=== PATIENT | male | born 1945 | race Caucasian/White ===

== ENCOUNTER 2016-04-17 14:49 | Emergency (ER) | payer MEDICARE, OTHER ==
[~2016-04-17] VITALS: Ht 188 cm; Wt 138.6 kg
[~2016-04-17 14:49] MED LIST: ADV250INH INH; AMLO2.5T2 PO; CHOL400T41 PO; Calcium PO; Fluticasone INH; GLUC-123 PO; LACT1CAP65 PO; LISI2.5T66 PO; LORA-630 PO; ProAirHFA INH; TAM4 PO; VITA0.4T7 PO; VITA100T6 PO; [UNRECOGNIZED DRUG - CODE] PO; [UNRECOGNIZED DRUG - CODE] PO
[2016-04-17 15:00] VITALS: BP 127/57; PULSE 89; O2SAT 93
--- NOTE | 2016-04-17 15:18 | ED.REPORT ---
HPI-General Illness Date of Service Apr 17, 2016 ED Provider: Jan Toure MD 71 year old male presents to the ER via EMS accompanied by his complaining of left shoulder pain status post mechanical ground level fall just prior to arrival in the department. He also reports left hip pain secondary to the fall. Patient denies head trauma, LOC, and any other injuries. Nursing Notes Stated Complaint: GROUND LEVEL FALL Chief Complaint: Extremity Trauma Nursing Notes Reviewed: Yes Allergies: Coded Allergies: morphine (Verified Adverse Reaction, Mild, NAUSEA, 09/03/12) Scheduled ([Calcium]) 1 TAB PO DAILY Albuterol-Expunged Drug, Do Not Renew! (ProAir HFA-Expunged Drug, Do Not Renew! ) 200 Puff/8.5 Gm Hfa.aer.ad 1-2 PUFFS INH Q 4HRS PRN AmLODIPine-Expunged Drug, Do Not Renew! (AmLODIPine-Expunged Drug, Do Not Renew! ) 2.5 Mg Tablet 2.5 MG PO DAILY Cholecalciferol (Vitamin D3) (Vitamin D3) 2,000 Unit Tablet 2,000 UNIT PO DAILY Flutic/Salmet-Expunged Drug, Do Not Renew! (Advair 250/50-Expunged Drug, Do Not Renew!) 60 Puff Disk 1 PUFF INH BID Gluc/Carlos-Msm#2/C/D3/Glenn/Born (Dvdxjtfiod-Nnxtfurqhdo-Fzm Tab) 1 Each Tablet 1- 2 EACH PO DAILY LORAT/N-KXFTJ-Vcynbkyw Drug! (ALLERGY & CONGESTION-Expunged Drug!) 1 Each Tab.er.12h 1 EACH PO DAILY Lactobacillus Acidophilus (Probiotic) 1 Each Capsule 1 EACH PO DAILY Lisinopril-Expunged Drug, Do Not Renew! (Lisinopril-Expunged Drug, Do Not Renew! ) 2.5 Mg Tablet 2.5 MG PO DAILY Metformin (Glucophage) 1,000 Mg Tablet 1,000 MG PO BID Tamsulosin-Expunged Drug, Do Not Renew! (Flomax-Expunged Drug, Do Not Renew!) 0.4 Mg Capsule 0.4 MG PO DAILY VITAMIN E ACID-Expunged Drug, Do Not Renew! (VITAMIN E-Expunged Drug, Do Not Renew!) 100 Unit Tablet 400 MG PO DAILY Scheduled PRN Hydrocodone-Acetaminophen 5-325 mg (Hydrocodone-Acetaminophen 5-325 mg) 1 Each Tablet 1 TABLET PO Q4H PRN PRN For Pain General Time Seen by MD: 15:15 Chief Complaint Other (Left Shoulder Pain) Hx Obtained From: Patient Arrived By: Ambulance Sudden in Onset?: Yes Onset Occurred: 1 - 4 hours ago (1) Symptom Duration: Since onset Caused by: Accidental, Fall on ground Context: Occurred at: Home injury Location: : Shoulder left Quality: Painful Severity: Current: Moderate Severity: Maximum: Moderate Associated with: Denies: Headache, Loss of consciousness Additional Notes: Left hip pain Denies head trauma Pertinent Negative: Pt denies other symptoms Past Medical History Past Medical History Reports: Asthma, Cancer (Prostate, bladder), Diabetes mellitus, Hypertension Past Surgical History Right knee scope Multiple bowel surgeries Reports: Hip replacement (Right) Social History Alcohol Use: "Social" (Rarely) Other Social History: Good social support, Review of Systems Full Review of Systems GI: Denies: Nausea, Vomiting Musculoskeletal: Reports: Joint pain (Left shoulder, Left hip), Denies: Back pain, Extremity pain, Lumbar pain, Neck pain, Thoracic pain Neurologic: Denies: Headache, Numbness, Syncope Complete sys rev & neg: except as marked. Physical Exam Vital Signs Vital Signs Date Time Temp Pulse Resp B/P Pulse Ox O2 Delivery O2 Flow Rate FiO2 04/17/16 15:00 36.8 89 127/57 93 Room Air Initial VS: Reviewed Head / Eyes: Atraumatic, Normocephalic Neck: Supple, Non-tender, Full range of motion Skin: Warm, Dry, No cyanosis Neurologic: Alert, Oriented, Nonfocal Psychiatric: Mood/affect normal, Behavior normal, Normal thought content General/Constitutional: Awake, Alert, Well developed, Well nourished Appearance / Presentation: Positive: Obese Upper Extremities Upper Extremity / MS: Neurologic intact, Vascular intact Upper Extremities Normals: Shoulder R exam normal Left Shoulder: Positive: Deformity present, Tenderness present... (Moderate) Lower Extremity / Pelvis / MS: Full range of motion, Neurologic intact, Vascular intact Left Hip: Positive: Tenderness present... Interpretation & Diagnostics X-Ray Interpretation Xray Interpretation: IMPRESSION: 1. Anterior dislocation of the left glenohumeral joint. Dictated by: Xu Méndez M.D. on 04/17/2016 at 16:19 Approved by: Xu Méndez M.D. on 04/17/2016 at 16:20 X-Ray Ordered: Shoulder left Interpretation / Wet Read by: Interpret - Radiologist Procedures Proced Mod Sedation/Analgesia Time: 16:30 Procedure Performed by: ED physician Sedation Time: 10 - 15 min Consent / Setup: Informed consent provided, Consent from patient, Time-out performed, Hand hygiene observed, Stand sterile technique, Patient sitting up Indication: Shoulder reduction Preparation: classroom monitor applied, Pulse oximeter applied, Constant attendance, IV access established, Eval last meal time, Supplemental oxygen, Procedure explained, Suction available, End tidal CO2 mon applied VS Prior to Procedure: All vital signs normal Mallampati: Class & Anatomy: 1 tonsils/uvula/s palate Airway Exam: Normal facial anatomy, Normal neck anatomy, Normal anatomy CVS/Resp Exam: Normal breath sounds, Normal heart sounds Neuro Exam: Alert Sedation: Sedation: Propofol (200mg) ASA Classification: 1 normal healthy patient Response During Procedure: Handled secretions adeq, Maintained airway well, Oxygenation stable, Sedation appropriate, Vital signs stable Complications During/After: None Reversal: None required Mental Status After Procedure: Alert Post-Procedure: Alert prior to discharge, Ambulatory with assist Attestation: I performed procedure, I performed sedation Reduction Dislocated Shoulder Time: 16:30 Procedure Performed by: ED physician Consent / Setup: Informed consent provided, Consent from patient, Time-out performed, Oxygen administered, Pulse oximeter applied, classroom monitor applied , Hand hygiene observed, Stand sterile technique Procedural Sedation/Analgesia: Sedation: Propofol (200mg) Which Shoulder and Technique: Left shoulder Neurovascular: Intact pre-procedure, Intact post-procedure Post-Procedure / Complications: Reduced per examination, Procedure successful, X-ray disloc reduced, Shoulder immobilized, Condition improved, Tolerated procedure well, Patient stable Splint Application - Fx Mgt Time: 16:37 Procedure Performed by: ED physician, Inner Tube Cutter Precise Anatomic Location: Left shoulder Type of Immobilization: Sling Post-Procedure / Complications: Cap refill normal, Post splint vascular nl, Post splint neuro nl, Condition improved, Tolerated procedure well, Patient stable Splint Post-Application Eval Extremity Condition: Cap refill < 2 sec, Distal sensation intact, Distal motor Intact, No compartment syndrome Re-Eval/Medical Decision Med Decision/Clinical Course The patient is a 71-year-old male who presents to the emergency department with left shoulder pain/deformity after sustaining a ground-level fall. Here in the emergency department the patient is afebrile with stable vital signs and examination as above notable for deformity of the left shoulder without any neurovascular deficits. Patient has good sensation over the deltoid region, good radial pulses and good cap refill to the fingertips. Plain films demonstrate anterior dislocation of the left shoulder without any fracture. Informed consent was obtained and I proceeded with procedural sedation using propofol. The patient was maintained on continuous cardiac monitoring, pulse oximetry and end-tidal CO2. Shoulder was reduced by traction and postreduction films demonstrated good alignment of the shoulder. The procedure was tolerated well and the patient maintained good oxygen saturation without any significant apnea or changes in vital signs. He reported complete resolution of his pain with reduction of his shoulder. He was placed in a splint and provided with a prescription for [place] for pain. He will follow up with orthopedic surgery in the next week. Follow-up and return precautions were reviewed in detail the patient was discharged in good condition. Source of Hx: Old records Time of Eval: 16:30 Re-Evaluation/Progress Note: Procedural sedation and shoulder reduction. Discussed radiololgy results and plan to discharge with . She is amenable to the plan. Return precautions given. All other questions addressed. Time of Eval: 17:01 Counseled Regarding: Diagnosis, Need for follow-up, When/why to return to ED Discharge & Departure Primary Impression: Shoulder dislocation Encounter type: initial encounter Laterality: left Qualified Code: S43.005A - Unspecified dislocation of left shoulder joint, initial encounter Additional Impressions: Left shoulder pain Chronicity: acute Qualified Code: M25.512 - Pain in left shoulder Fall from ground level Disposition: Home Discharge Condition All VS Reviewed: Yes Condition: Stable Patient Instructions: How to Use a Sling (GEN), Shoulder Dislocation (ED) Additional Instructions: Thank you for seeking care at emergency room for your shoulder dislocation. Our primary goal today in the ED was to evaluate you for any life-threatening conditions. Your evaluation was reassuring. You will be discharged with a prescription for pain medication. Please take as directed. Do not consume alcohol or drive while taking narcotic pain medication. You should follow-up with the orthopedic doctor this week at the number provided. You should return to the ED immediately if you develop worsening pain, numbness/ tingling, weakness, or any other concerning signs or symptoms. Thank you for letting us partake in your care today. Referrals: Jose Paige DO (PCP) Matt Fitch Attestation Portions of this note were transcribed by Art Cisneros. I, Dr. Toure, personally performed the history, physical exam and medical decision-making; I reviewed and confirmed the accuracy of the information in the transcribed note. Signed by: Siomara Conn, 04/17/2016 and 16:43 copies to: Jose Paige DO; Matt Fitch Beck O MD Apr 17, 2016 15:18 ART CISNEROS Apr 17, 2016 16:03
[2016-04-17] MEDS ORDERED: CHOL200025 PO (15:23)
[2016-04-17] MEDS ORDERED: METF1000 PO (15:23)
[2016-04-17] MEDS ORDERED: Ondansetron 2 mg/mL 2 mL Inj IVPUSH ONE (15:35)
[2016-04-17] MEDS ORDERED: 0.9% Sodium Chloride 1,000 ML IV ONE (15:35)
[2016-04-17] MEDS ORDERED: HYDROmorphone 1 mg/mL Inj IVPUSH ONE (15:35)
[2016-04-17] MEDS ORDERED: Propofol 10 mg/mL 20 mL Inj IVPUSH ONE (16:00)
--- NOTE | 2016-04-17 16:21 | DRSVH ---
PROCEDURE: X-RAY LEFT SHOULDER, MINIMUM TWO VIEWS ([id number]) INDICATIONS: possible dislocation TECHNIQUE: 2 views of the shoulder were acquired. COMPARISON: None. FINDINGS: Bones: There is anterior dislocation of the left glenohumeral joint. No definite fracture identifie d. No suspicious bony lesions. Visualized ribs appear intact. Soft tissues: No suspicious soft tissue calcifications. IMPRESSION: 1. Anterior dislocation of the left glenohumeral joint. Dictated by: Xu Méndez M.D. on 04/17/2016 at 16:19 Approved by: Xu Méndez M.D. on 04/17/2016 at 16:20
[2016-04-17] MEDS ORDERED: HYDR-4003 PO (16:56)
--- NOTE | 2016-04-17 17:03 | DRSVH ---
PROCEDURE: X-RAY LEFT SHOULDER, MINIMUM TWO VIEWS ([id number]) INDICATIONS: post reduction TECHNIQUE: 2 views of the shoulder were acquired. COMPARISON: [facility], CR, XR SHOULDER MIN 2VW LT, 04/17/2016, 15:46. FINDINGS: Bones: There is interval reduction of the glenohumeral joint. No definite fracture identified. No suspicious bony lesions. Visualized ribs appear intact. Soft tissues: No suspicious soft tissue calcifications. IMPRESSION: 1. Reduction of the glenohumeral joint without definite fracture identified. Dictated by: Xu Méndez M.D. on 04/17/2016 at 17:01 Approved by: Xu Méndez M.D. on 04/17/2016 at 17:02
--- NOTE | 2016-04-17 17:06 | DRSVH ---
PROCEDURE: X-RAY PELVIS, ONE OR TWO VIEWS ([id number]) INDICATIONS: trauma TECHNIQUE: Single view of the pelvis acquired. COMPARISON: None. FINDINGS: Bones: Single view of the pelvis demonstrates no definite fracture or dislocation. Evaluation is li mited due to incomplete inclusion of the iliac wings bilaterally. There is a right total hip prosthe sis demonstrated with the femoral component not fully visualized distally. Soft tissues: Visualized bowel gas pattern is normal. No suspicious soft tissue calcifications. IMPRESSION: 1. Limited study demonstrates no definite fracture or dislocation. Dictated by: Xu Méndez M.D. on 04/17/2016 at 17:02 Approved by: Xu Méndez M.D. on 04/17/2016 at 17:05
[2016-04-17 18:55] VITALS: BP 130/49; PULSE 74; RESP 11; O2SAT 98
[2016-08-18] MEDS ORDERED: LISI-567 PO (08:29)
[2016-08-18] MEDS ORDERED: MELO-253 PO (08:29)
[2016-08-18] MEDS ORDERED: FLUT9.9S NS (08:29)
[2016-08-18] MEDS ORDERED: FEXO180T85 PO (08:29)
[2016-08-18] MEDS ORDERED: ADV250INH IH (08:29)
[2016-08-18] MEDS ORDERED: METF1000 PO (08:29)
[2016-08-18] MEDS ORDERED: TAMS0.4C98 PO (08:29)
[2016-08-18] MEDS ORDERED: ALBU8.5H2 INHALATION (08:29)
[2016-08-18] MEDS ORDERED: GABA-502 PO (08:29)
[2016-08-18] MEDS ORDERED: ATOR20TA PO (08:29)
[2016-08-18] MEDS ORDERED: AMLO5TAB2 PO (08:29)
== END 2016-04-17 17:10 | disposition home or self-care (01) ==
LOC: EDUNIT# 14:49 → EDBD 14:49 → SED 14:49
DX: S43.015A Anterior dislocation of left humerus, initial encounter (principal); W18.39XA Other fall on same level, initial encounter; Y92.009 Unspecified place in unspecified non-institutional (private) residence as the place of occurrence of the external cause; Y93.89 Activity, other specified; Y99.8 Other external cause status; M25.552 Pain in left hip; J45.909 Unspecified asthma, uncomplicated; I10 Essential (primary) hypertension; E11.9 Type 2 diabetes mellitus without complications; Z96.641 Presence of right artificial hip joint; Z79.84 Long term (current) use of oral hypoglycemic drugs; Z88.5 Allergy status to narcotic agent
CPT/HCPCS: 23650; 72170; 73030; 94799; 96361; 96374; 96375; 99152; 99285; G0463; J1170; J2405; J7030

== ENCOUNTER 2016-08-23 05:45 | Inpatient (IN) | payer MEDICARE, OTHER ==
[2016-08-23] VITALS (17 sets, daily range): BP systolic 127–158; BP diastolic 52–89; PULSE 64–85; RESP 12–20; O2SAT 90–99
[~2016-08-23] VITALS: Ht 188 cm; Wt 134.0 kg
[~2016-08-23 05:45] MED LIST changes: +ADV250INH IH; -ADV250INH INH; +ALBU8.5H2 INHALATION; -AMLO2.5T2 PO; +AMLO5TAB2 PO; +ATOR20TA PO; -CHOL400T41 PO; -Calcium PO; +FEXO180T85 PO; +FLUT9.9S NS; -Fluticasone INH; +GABA-502 PO; -GLUC-123 PO; -LACT1CAP65 PO; +LISI-567 PO; -LISI2.5T66 PO; -LORA-630 PO; +Lactated Ringer's 1,000 ML IV SCH; +MELO-253 PO; +METF1000 PO; -ProAirHFA INH; -TAM4 PO; +TAMS0.4C98 PO; -VITA0.4T7 PO; -VITA100T6 PO; -[UNRECOGNIZED DRUG - CODE] PO; -[UNRECOGNIZED DRUG - CODE] PO
[2016-08-23] MEDS ORDERED: Acetaminophen IV 1,000 MG in IV Premix 1 EACH IV ONE (06:00)
[2016-08-23] MEDS ORDERED: Bupivacaine Liposome 1.3% 20 mL Inj INFILTRATE ONE (06:00)
[2016-08-23] MEDS ORDERED: CeFAZolin Inj 3 GM in IV Premix IV ONE (06:00)
[2016-08-23] MEDS ORDERED: Hip/Knee Infiltration Cocktail IM ONE ×7 (06:00)
[2016-08-23] MEDS ORDERED: Gentamicin 40 mg/mL 2 mL Inj IRRIGATION ONE (06:00)
[2016-08-23] MEDS ORDERED: Lactated Ringer's 1,000 ML IV ONE ×2 (06:34→09:21)
[2016-08-23] MEDS ORDERED: Lactated Ringer's 1,000 ML IV SCH (07:09)
[2016-08-23] MEDS ORDERED: Lactated Ringer's 500 ML IV PRN (07:09)
[2016-08-23] MEDS ORDERED: EPHEDrine Sulfate 50 mg/mL Inj IVPUSH PRN (07:10)
[2016-08-23] MEDS ORDERED: Phenylephrine 10,000 mCg/mL Inj IVPUSH PRN (07:10)
[2016-08-23] MEDS ORDERED: fentaNYL-PF 50 mCg/mL 2 mL Inj IVPUSH PRN (07:10)
[2016-08-23] MEDS ORDERED: Atropine 0.4 mg/mL Inj IVPUSH PRN (07:10)
[2016-08-23] MEDS ORDERED: MetoCLOpramide 5 mg/mL 2 mL Inj IVPUSH PRN ×2 (07:10→09:55)
[2016-08-23] MEDS ORDERED: Labetalol 5 mg/mL 4 mL Inj IV PRN (07:10)
[2016-08-23] MEDS ORDERED: Ondansetron 2 mg/mL 2 mL Inj IVPUSH PRN ×2 (07:10→09:55)
[2016-08-23] MEDS ORDERED: HYDROmorphone 1 mg/mL Inj IVPUSH PRN (07:10)
[2016-08-23] MEDS ORDERED: hydrALAZINE 20 mg/mL Inj IVPUSH PRN (07:10)
[2016-08-23] MEDS ORDERED: Dexamethasone 4 mg/mL Inj IVPUSH PRN (07:10)
[2016-08-23] MEDS ORDERED: Albuterol 2.5 mg/3 mL Inhalation Solution NEB PRN (07:10)
[2016-08-23] MEDS ORDERED: Tranexamic Acid 100 mg/mL 10 mL Inj ONE (07:15)
[2016-08-23] MEDS ORDERED: 0.9% Sodium Chloride 200 ML ONE (07:15)
--- NOTE | 2016-08-23 07:26 | PCM.ORTHOP ---
Orthopedic Operative Report Date of Service: Aug 23, 2016 Pre Operative Diagnosis Left shoulder massive rotator cuff tear, glenohumeral joint arthritis, biceps tendinitis Post Operative Diagnosis Same Procedure Left reverse total shoulder arthroplasty, open biceps tenodesis Surgeon Surgeon: Jorge Gore MD Assistants: Alvarado Mcfarlane Indication for Procedure Left shoulder pseudoparalysis, arthritis, massive rotator cuff tear Findings Per dictation Details of Procedure Implant:[employer] Reverse fracture system: 9 CaP coated humeral stem, 39 neutral glenoid baseplate, 39+6 humeral insert mm head, 39+4 glenosphere, 6.5X20 mmcentral non-locking screw size peripheral locking screw 36mm, peripheral locking screw 36mm Patient Status: Patient was extubated and taken to recovery room in stable condition. Indications: Javed Nelson is a 71-year-old male right hand dominant with left shoulder pain with pseudoparalysis and glenohumeral arthritis. The patient was offered conservative treatments versus surgical intervention given the severity of the injury and the patient opted for surgery. A clear explanation was given to the patient regarding the condition present, and the available conservative and surgical options. It was emphasized that the risks and benefits of surgery include but are not limited to infection, wound healing problems, damage to adjacent structures such as nerves, blood vessels and tendons, terminal supervisor disability and pain, arthritis, hypersensitivity, deep vein thrombosis, pulmonary embolism, broken hardware, failure of surgery, need for further procedures at time of surgery or later, cast related problems, loss of limb or life. The patient was given an explanation and the patient voiced understanding of what to expect after the procedure or surgery, the limitations in activities of daily living, the likely duration for post operative recovery and the instructions that are to be followed. At the end the patient was invited to seek clarification or ask further questions but there were none. The patient voiced understanding of the entire consultation. Description of Procedure: Patient was taken to operating room and transferred to operating table in supine position. Time out was performed with both anesthesia and orthopaedics faculty present to confirm details of case to be performed. After time out performed, patient placed under general anesthesia and endotracheal tube secured into place. Once endotracheal tube secured, the patient was placed into the modified beach-chair position at about 40 degrees of flexion. Patient position was again checked to ensure all bony prominences adequately padded. The left arm was prepped and draped in the usual sterile fashion to the level of the neck. A standard deltopectoral incision was made beginning immediately above the coracoid process and extending distally and laterally. The deltoid muscle was split through the interval being carefully not to release any deltoid along the clavicle or humerus. The proximal one-third of the pectoralis major muscle was incised off the humerus for better exposure. The supraspinatus and infraspinatus muscles were intact and still attached to the fractured greater tuberosity. The subscapularis was intact and also still attached to the fractured lesser tuberosity. It was incised through the tendinous portion just medial to the lesser tuberosity and tagged with 2-0 Fiberwire. The arm was externally rotated to expose the humeral head while the anterior humeral circumflex vessels ("3 sisters") were identified, ligated and then cut protecting the axillary nerve throughout inferior and medial to the vessels. The long head of the biceps was identified along the bicipital groove, incised at its origin and tagged for later tenodesis to the pectoralis major A army helicopter pilot hole was then made with a 4 mm drill through the humeral head along the axis of the humeral shaft just lateral to the head's articular surface and just posterior to the bicipital groove. The 6 mm trochar pointed reamer was then inserted with continued circumferential reaming in 1 mm increments until light cortical contact was achieved with the entry reamer. The intramedullary resection guide was assembled and the version control alberto was placed to allow for 30 degrees retroversion. The neck cut was verified with a bat wing. Two threaded Steinmann pins were placed in the resection guide to secure the block to bone and the reamer and guide boom were removed prior to resecting the humeral head with the oscillating saw. We started broaching sequentially and ended with the 9 mm broach which solidly fit in the canal and fully seated on the humerus. The broach cover was then used to protect the humerus while attention was turned to the glenoid. Any remaining labrum was removed from the glenoid along with surrounding osteophytes. The glenoid sizer was centered on the glenoid and a 3.2 mm Steinmann pin was inserted with a 10 degree inferior tilt with solid bone purchase. The glenoid was then reamed with the cannulated base plate reamer over the top of the Steinmann pin until a small bone shelf was evident circumferentially. The cannulated trial glenoid baseplate was placed and fully seated. The glenoid baseplate implant was impacted and fully seated. The 6.5 mm central screw was then inserted following removal of the Steinmann with good compression. The surrounding peripheral screws were then drilled with a 2.7 mm drill through the threaded locking guides and then placed. The glenosphere trial was placed and tested with a good fit. The 39 mm glenosphere implant was then tamped in place with appropriate offset. The standard humeral tray/bearing were placed and a trial reduction was performed. The patient achieved 80 degrees of external/internal rotation, 110 degrees of abduction, 45 degrees extension and 120 degrees of forward flexion with complete stability. The trail components were removed and the wound was copiously irrigated with 3 liters of normal saline. The stem was inserted followed by impaction of the humeral tray/ bearing. The implant was reduced and once again range of motion was found to be 80 degrees of external/internal rotation, 110 degrees of abduction, 45 degrees extension and 120 degrees of forward flexion with complete stability. The wound was again irrigated. The subscapularis was repaired with drill holes in the humerus prior to implantation of the stem with #2 Fiberwire through previously made bone tunnels. The long head of biceps was tenodesed to the pectoralis major. The deltoid interval was closed with 0 vicryl followed by 2-0 vicryl subcutaneous closure and then stratafix stitches for the skin. Transexamic acid was administered and a local anesthetic cocktail into the skin. Sterile dressings were applied along with a shoulder immobilizer and abduction pillow. The patient was then awoken from anesthesia and extubated, his neurovascular status was intact when checked in PACU. Pt tolerated procedure well and there was no complications. Nonweightbearing to affected upper extremity. Please leave sling on at all times. You may remove sling 3 times a day to move the elbow wrist and fingers. Do not move your shoulder. PROM only, IR to body, ER to 0 degrees, FF to 90 degrees, ABD to 0 degrees. Keep your arm at neutral, NO external rotation of the arm, no resisted IR of the arm. Please keep the affected extremity elevated when possible. You may use ice and/or heat as needed for comfort. Follow-up in 2 weeks with me with 2-view xrays and for suture removal and Steri -Strip application. Follow-up with me at 6 weeks. You will have pain medications , medication for constipation and aspirin 81 qdaily X 2 weeks. Grafts, Implants: Implants-See Implant Record Complications There were no periprocedural complications identified. Condition Stable Anesthetic Administered: GA Catheters: None Output, Estimated Blood Loss: 100 Blood Admin during surgery: No Surgical Cast or Splint: Shoulder Immobilizer Surgical Specimen Removed: No Specimen sent to Pathology: No copies to: Jorge Gore MD, Christopher L MD Aug 23, 2016 07:26
[2016-08-23] MEDS ORDERED: Hip/Knee Infiltration Cocktail ARTICULAR ONE ×6 (07:30)
[2016-08-23] MEDS ORDERED: Bacitracin 50,000 unit Inj ONE (07:33)
[2016-08-23] MEDS ORDERED: Bacitracin 50,000 unit Inj IRRIGATION ONE (08:35)
--- NOTE | 2016-08-23 08:39 | PCM.HPANE ---
Patient Data Date of Service: Aug 23, 2016 Surgeon Admitting Provider: Attending Provider:Jorge Gore MD Primary Care Physician:Jose Paige DO Other Provider:Daniele Land Anesthesia Reason for Visit Left Shoulder Rotator Cuff Tear Ht/WT & BMI Height (Feet): 6 Height (Inches): 1.00 Weight (Kilograms): 134.717 Body Mass Index 39.00 Allergies Coded Allergies: morphine (Verified Adverse Reaction, Severe, NAUSEA, 08/18/16) Past Anesthesia History Anesthesia History: Denies:: Anesthesia Reactions, Malignant Hyperthermia Diabetes History Hx Diabetes?: Yes (type II) Type of Diabetes: Type II Glycemic Control: Oral Medication Current Bedside Blood Glucose: 137 MRSA MRSA: No Medications Hypertension Medication: Yes (AMLODIPOINE,LISINOPRIL) Home Meds Incl Beta Roberto: No Reported Medications Albuterol HFA (Proair HFA)8.5 Gm Hfa.aer.ad2 Puffs INHALATION Q4H PRN PRN #1 INHALER 08/18/16 Metformin (Glucophage)1,000 Mg Tablet1,000 Mg PO BID Ref 0 08/18/16 Meloxicam 15 Mg [id number] Mg PO DAILY 30 Days Ref 0 08/18/16 Lisinopril 20 Mg Gawlxh90 Mg PO DAILY 30 Days Ref 0 08/18/16 Gabapentin 300 Mg [id number] Mg PO BID Ref 0 08/18/16 Fluticasone Propionate (Flonase Allergy Relief)50 Mcg/Actuation [place].susp9.9 Ml NS DAILY 08/18/16 Tamsulosin (Flomax)0.4 Mg Capsule0.4 Mg PO DAILY Ref 0 08/18/16 Atorvastatin (Lipitor)20 Mg Hfckuj19 Mg PO DAILY Ref 0 08/18/16 Amlodipine 5 Mg Tablet5 Mg PO DAILY Ref 0 08/18/16 Fexofenadine (Adelia Allergy)180 Mg Wyfzxn822 Mg PO DAILY Ref 0 08/18/16 Fluticasone/Salmeterol (Advair 250-50 Diskus)60 Puff/Inh Disk1 Puff IH BID #1 DISK Ref 0 08/18/16 Discontinued Reported Medications Metformin (Glucophage)1,000 Mg Tablet1,000 Mg PO BID Ref 0 04/17/16 Cholecalciferol (Vitamin D3) (Vitamin D3)2,000 Unit Tablet2,000 Unit PO DAILY 04/17/16 VITAMIN E ACID-Expunged Drug, Do Not Renew! (VITAMIN E-Expunged Drug, Do Not Renew!)100 Unit [id number] Mg PO DAILY 08/24/12 Tamsulosin-Expunged Drug, Do Not Renew! (Flomax-Expunged Drug, Do Not Renew!) 0.4 Mg Capsule0.4 Mg PO DAILY 08/24/12 Lisinopril-Expunged Drug, Do Not Renew! 2.5 Mg Tablet2.5 Mg PO DAILY 08/24/12 Lactobacillus Acidophilus (Probiotic)1 Each Capsule1 Each PO DAILY 08/24/12 Flutic/Salmet-Expunged Drug, Do Not Renew! (Advair 250/50-Expunged Drug, Do Not Renew!)60 Puff Disk1 Puff INH BID 08/24/12 Albuterol-Expunged Drug, Do Not Renew! (ProAir HFA-Expunged Drug, Do Not Renew!) 200 Puff/8.5 Gm Hfa.aer.ad1-2 Puffs INH Q 4HRS PRN 08/24/12 [Calcium] No Conflict Check1 Tab PO DAILY 08/24/12 AmLODIPine-Expunged Drug, Do Not Renew! 2.5 Mg Tablet2.5 Mg PO DAILY 08/24/12 LORAT/U-RINPS-Awbuinvr Drug! (ALLERGY & CONGESTION-Expunged Drug!)1 Each Tab.er.12h1 Each PO DAILY 08/24/12 Gluc/Carlos-Msm#2/C/D3/Glenn/Born (Cifrprjpfr-Nlxdqavaycr-Fgq Tab)1 Each Tablet1-2 Each PO DAILY 08/24/12 Discontinued Scripts Hydrocodone-Acetaminophen 5-325 mg 1 Each Tablet1 Tablet PO Q4H PRN For Pain # 20 TABLET Prov:Jan Toure MD 04/17/16 History History of ENT Problems?: Yes HEENT History: Positive for:: Sinus Problem (SEASONAL ALLERGIES) Denture Type: None Teeth Condition: Within Normal Limits Hx of Heart Problems?: Yes Cardiovascular History: Positive for:: Abdominal Aortic Aneurism (AORTIC ROOT BORDERLINE DILATED;ASCENDING AORTA MILDLY DILATED) Hypertension (HYPERLIPIDEMIA) Valvular Heart Disease (MILD /AR) Denies:: Congestive Heart Failure Heart Murmur (ECHO 12/2014 EF 55-60%) Hx of Respiratory Problem?: Yes Respiratory History: Positive for:: Asthma Use of C-PAP Machine (ASHELY+ W/ CPAP) Use of Inhalers / NEBS Denies:: Tuberculosis Hx Neurologic Problems?: Yes Other Neurological Pertinent: C/OF DIABETIC POLYNEUROPATHY Hx of GI Problems?: Yes Other GI Pertinent History: HX OF BOWEL PERFORATION S/P MULTIPLE BOWEL SURGERIES TO RPR PERFORATION/COMPLICATIONS Hx of Problems?: Yes Other Pertinent History: HX BLADDER CA C/OF URGENCY,FREQUENCY & NOCTURIA Male Hx: Positive for:: Prostate Problems (HX PROSTATE CA=CHEMO RADIATION) Denies:: Scrotal Mass Testicular Surgery Skin History: Denies:: History Skin Disorders? 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,RT TKA) Musculoskeletal Trauma (S/P RT KNEE SCOPE ) Osteoarthritis Hx of Psycho/Social Problems?: No Hx Surgeries?: Yes (RT KNEE SCOPE,RT FIFI,RT TKA,MULT BOWEL SURGERIES) Hx Any Other Health Problems?: Yes Other History: Positive for:: Cancer (BLADDER,PROSTATE) Denies:: Endocrine Disease Hospitalization Thyroid Disease Hx Diabetes: Yes (type II)Bedside Blood Glucose: 137 Hx Alcohol Use: Yes ("SOCIAL")Hx Substance Use: NoHave You Smoked inLast 12 mo : No Stop/Bang Treated for Sleep Apnea?: Yes Do You Have a CPAP Machine?: Yes S-Snoring: Do You Snore Loudly: No T-Tired: feel tired, fatigued: No O-Obsered: Observed not breath: No P-Blood Pressure: treated: Yes B- Body Mass Index > 35 kg/m2: Yes A- Age over 50: Yes N- Neck Large Circumference: Yes G- Gender Male: Yes ASHELY Total Score: 5 ASHELY Risk Assessment: High Risk, =/>3 Yes ASHELY Category 1: Yes Risk Assessment Category Category 1A: Patient has history of documented sleep apnea, and HAS NOT received any narcotic, sedative or anesthesia administration during this stay. Category 1B: Patient has history of documented sleep apnea, and HAS received any narcotic , sedative or anesthesia administration during this stay Category 2: Patient has SUSPECTED Obstructive Sleep Apnea, and HAS received any narcotic , sedative or anesthesia administration during this stay. Category 3: Patient has SUSPECTED Obstructive Sleep Apnea and HAS NOT received narcotic, sedative or anesthesia administration during this stay. Category 4: Outpatient in Procedural Areas with known sleep apnea or who screen positive for High Risk via the STOP/BANG questionnaire. Exam Exam Vital Signs Vital Signs Date Time Temp Pulse Resp B/P Pulse Ox O2 Delivery O2 Flow Rate FiO2 08/23/16 07:35 35.8 64 18 140/ 94 Room Air General Appearance: Alert, Oriented X3, Cooperative HEENT/AIRWAY: MP 3, Neck Movement (Full, thick), Mouth Opening (Wide) Lungs: Clear to Auscultation, Normal Air Movement Heart: Regular Rate/Rhythm, Normal S1, Normal S2 Meds/Labs/Diagnostics Admission Meds Current Medications Acetaminophen 1000 mg/Premix 100 ml @ 400 mls/hr ONCE ONCE IV Last administered on 08/23/16 07:15; Start 08/23/16 at 06:00; Stop 08/23/16 at 06:14 ; Status DC Lactated Ringer's (Lr) 1,000 ml @ ud STK-MED ONCE IV Last administered on 08/23 06:34; Start 08/23/16 at 06:34; Stop 08/23/16 at 06:35; Status DC Bedside Blood Glucose: 137 Plan Impression Patient chart reviewed, patient interviewed and anesthestic plan with risks, benefits, and alternatives discussed, and informed consent obtained. NPO per Anesth. Guidelines: Yes ASA Physical Status: ASA3 Severe Disease Anesthetic Support Modalities: [place] Scope Anesthetic Plan: GA, Regional Block Bene/Risks/Altern/Consents: Yes HP Complete Prior to Induction: Yes Gregorio Bonilla MD Aug 23, 2016 08:39
[2016-08-23] MEDS ORDERED: Gentamicin 40 mg/mL 2 mL Inj INJ ONE (09:30)
[2016-08-23] MEDS ORDERED: Hip/Knee Infiltration Cocktail INFILTRATE ONE ×12 (09:33→09:35)
[2016-08-23] MEDS: 0.9% Sodium Chloride 1,000 ML IV SCH ×2 (09:52→22:22)
[2016-08-23] MEDS ORDERED: diphenhydrAMINE 25 mg Capsule PO PRN (09:55)
[2016-08-23] MEDS ORDERED: Magnesium Hydroxide 10 mL Oral Concentration PO PRN (09:55)
[2016-08-23] MEDS ORDERED: Polyethylene Glycol (PEG) 17 Gm Powder PO PRN (09:55)
[2016-08-23] MEDS ORDERED: Ketorolac 15 mg/mL Inj IVPUSH PRN (09:55)
[2016-08-23] MEDS ORDERED: Sodium Biphos-Phos 133 mL Enema RECTAL PRN (09:55)
--- NOTE | 2016-08-23 11:05 | DRSVH ---
PROCEDURE: X-RAY LEFT SHOULDER, MINIMUM TWO VIEWS ([id number]) INDICATIONS: s/p left reverse TSA TECHNIQUE: 3 views of the shoulder were acquired. COMPARISON: [facility], [place], XR SHOULDER 4 VW LT, 05/11/2016, 12:33. [facility], [place], XR SHOULDER MIN 2VW LT, 04/17/2016, 16:33. FINDINGS: Bones: No fractures or dislocations. No suspicious bony lesions. Visualized ribs appear intact. Le ft shoulder arthroplasty is present. Hardware is intact. Soft tissues: No suspicious soft tissue calcifications. IMPRESSION: Interval placement of left shoulder arthroplasty. Dictated by: Tamiko Camacho M.D. on 08/23/2016 at 11:03 Approved by: Tamiko Camacho M.D. on 08/23/2016 at 11:04
--- NOTE | 2016-08-23 11:23 | PCM.ANEP1 ---
Post Anesthesia PACU Phase 1 Assessment Date of Service: Aug 23, 2016 Vital Signs Vital Signs Date Time Temp Pulse Resp B/P Pulse Ox O2 Delivery O2 Flow Rate FiO2 08/23/16 11:21 36.4 72 16 134/57 95 Nasal Cannula 3 08/23/16 11:00 67 17 137/65 95 Nasal Cannula 3 08/23/16 10:50 68 12 134/65 95 Nasal Cannula 3 08/23/16 10:45 36.2 66 18 158/65 95 Nasal Cannula 3 08/23/16 10:40 66 18 140/71 94 Nasal Cannula 3 08/23/16 10:35 71 20 148/63 94 Nasal Cannula 3 08/23/16 10:30 72 20 150/62 93 Nasal Cannula 3 08/23/16 10:25 76 20 152/61 98 Room Air 08/23/16 10:20 76 17 137/54 98 Simple Mask 8 08/23/16 10:15 74 18 144/56 98 Simple Mask 08/23/16 10:10 36.3 74 16 133/52 99 Simple Mask 8 08/23/16 07:35 35.8 64 18 140/ 94 Room Air Anesthetic Administered: GA Level of Alertness: Sleeping, hard to arouse BRADY's with Equal Strength: No (left interscalene block) Pain: No Nausea or Vomiting: No CV Function & Hydration Stable: Yes Airway Device: Oralpharangeal Airway Oxygen Delivery: Simple Mask Lungs: Normal Air Movement PACU Phase 2 Assessment Complications: No Follow up Care: N/A Patient Instructions Provided: N/A Gregorio Bonilla MD Aug 23, 2016 11:23
--- NOTE | 2016-08-23 11:30 | NUR ---
PostOp Pt comes via fatuma from PACU. A&OX4, Denies CO, SOB, Nausea and pain. States that his thumbs on both sides are numb but otherwise has all sensation. Arm/shoulder immobilizer in place. Dressing C/D/I. TEDs on bilat legs. 2L NC plan to wean off.
[2016-08-23] MEDS ORDERED: Ondansetron 2 mg/mL 2 mL Inj ONE (11:35)
[2016-08-23] MEDS ORDERED: fentaNYL-PF 50 mCg/mL 2 mL Inj ONE (11:35)
[2016-08-23] MEDS ORDERED: Phenylephrine 10,000 mCg/mL Inj ONE (11:35)
[2016-08-23] MEDS ORDERED: Propofol 10 mg/mL 20 mL Inj ONE (11:35)
[2016-08-23] MEDS ORDERED: Rocuronium 10 mg/mL 5 mL Inj ONE (11:35)
[2016-08-23] MEDS ORDERED: Neostigmine 1 mg/mL 10 mL Inj ONE (11:35)
[2016-08-23] MEDS ORDERED: Glycopyrrolate 0.2 MG/ML 1mL Inj ONE (11:35)
[2016-08-23] MEDS ORDERED: Succinylcholine Chloride 20 mg/mL 5 mL Inj ONE (11:35)
[2016-08-23 15:35] LABS: APPEARANCE,URINE HAZY (CLEAR,HAZY); COLOR,URINE YELLOW (YELLOW); OCCULT BLOOD,URINE NEGATIVE (NEGATIVE); PH,URINE 5.5 (5.0-8.0); UROBILINOGEN,URINE NORMAL (NORMAL)
[2016-08-23] MEDS: CeFAZolin Inj 2 GM in IV Premix 1 EACH IV SCH (17:26)
[2016-08-23] MEDS: Senna-Docusate 8.6-50 mg Tablet PO SCH (21:20)
[2016-08-24] MEDS: CeFAZolin Inj 2 GM in IV Premix 1 EACH IV SCH (00:59)
--- NOTE | 2016-08-24 04:11 | NUR ---
transfer Pt transferred to [facility] at 2350 in bed by 2 FORM PRESS OPERATOR'a. All belongings with Pt, report given to Yesika
[2016-08-24] MEDS: HYDROcodone-APAP 5-325 mg Tablet PO PRN ×2 (05:42→10:52)
--- NOTE | 2016-08-24 05:56 | NUR ---
Transfer from [facility] received phone report at [phone], pt arrived to floor at 2250 per bed, pt a/o able to make needs known, has IV SL, left arm with immobilizer, NVS checks q4, intact, post op pain managed with PO [place] with relief, pt received bag 2 of 2 of IV ABO, pending DC in am, call light in reach at all times.
[2016-08-24 06:08] VITALS: BP 146/64; PULSE 84; RESP 17; O2SAT 97
[2016-08-24 06:52] LABS: BASOPHILS % (AUTO) 0.2 % (0-3)
[2016-08-24 07:01] LABS: EOSINOPHILS % (AUTO) 1.5 % (0-5); MONOCYTES % (AUTO) 10.5 % (4-12); Mean Corpuscular Hemoglobin 29.3 pg (27.0-35.0); Mean Corpuscular Volume 87.7 fL (81-100); NEUTROPHILS % (AUTO) 79.7 % (40-74); Platelet Count 242 bil/L (150-400)
[2016-08-24 08:00] VITALS: BP 147/79; PULSE 73; RESP 18; O2SAT 92
[2016-08-24] MEDS: Senna-Docusate 8.6-50 mg Tablet PO SCH (08:05)
[2016-08-24] MEDS: 0.9% Sodium Chloride 1,000 ML IV SCH (10:18)
--- NOTE | 2016-08-24 11:00 | PCM.PNORTH ---
Subjective Date of Service: Aug 24, 2016 Visit Information: Reason for Visit Left Shoulder Rotator Cuff Tear Surgery/Surgery Date LEFT REVERSE TOTAL SHOULDER 08/23/16 Post-Op Day # Date of Admission: Aug 23, 2016 at 11:34 Hospital Day # Subjective Status post day #1 left reverse total shoulder arthroplasty. Patient doing well. States that his pain is just a little achy as it was before surgery. He has been able to get up with physical therapy and did well. Would like to go home today. Postop General: No Complaints, No Shortness of Breath, No Chest Pain Objective Exam Objective Patient is alert and oriented 3. Answering questions appropriately. Patient is sitting up in bedside chair and not in acute distress today. Wearing sling appropriately. Patient able to wiggle fingers, sensation intact to left upper extremity, capillary refill less than 3 seconds. Radial pulses intact. Vital Signs and I/O Vital Sign - Last Date Time Temp Pulse Resp B/P Pulse Ox O2 Delivery O2 Flow Rate FiO2 08/24/16 08:00 37.2 73 18 147/79 92 Room Air 08/23/16 15:15 2.00 Intake and Output 08/23/16 08/23/16 08/24/16 Cumulative From/Thru 15:00 23:00 07:00 08/18/16 08:29 - 08/24/16 05:55 Intake Total 570 ml 800 ml 425 ml 2795 ml Output Total 200 ml 600 ml 450 ml 1250 ml Balance 370 ml 200 ml -25 ml 1545 ml Intake Oral 800 ml 350 ml 1150 ml IV Total 570 ml 75 ml 1645 ml Output Urine Total 600 ml 450 ml 1050 ml Estimated Blood Loss 200 ml 200 ml Lab & Micro Results Laboratory Tests Test 08/23/16 14:45 08/24/16 06:10 Urine Color Yellow (YELLOW) Urine Appearance Hazy (CLEAR,HAZY) Urine pH 5.5 (5.0-8.0) Urine Specific [place] 1.025 (1.003-1.035) Urine Protein Negativemg/dL (NEG,TRACE) Urine Glucose (UA) Negativemg/dL (NEGATIVE) Urine Ketones Negativemg/dL (NEGATIVE) Urine Occult Blood Negative (NEGATIVE) Urine Nitrite Negative (NEGATIVE) Urine Bilirubin Negative (NEGATIVE) Urine Urobilinogen Normalmg/dL (NORMAL) Urine Leukocyte Esterase Negative (NEGATIVE) Urine RBC 0-2/hpf (0-2) Urine WBC 6-10/hpf (0-5) Urine Epithelial Cells Occasional/hpf (NONE-MOD) Urine Crystals None seen (NONE SEEN) Urine Bacteria None/hpf (NONE-FEW) Urine Hyaline Casts None/lpf (NONE) Urine Granular Casts None seen (NONE SEEN) Urine Waxy Casts None seen (NONE SEEN) Urine Red Blood Cell Casts None seen (NONE SEEN) Urine White Blood Cell Casts None seen (NONE SEEN) Urine Mucus Present (None Seen) Urine Trichomonas None seen (NONE SEEN) Urine Yeast None (NONE SEEN) Urinalysis Comment None Urine Culture Reflexed Indicated White Blood Count 13.0th/mm3 (3.8-10.1) Red Blood Count 4.13mil/mm3 (4.40-5.80) Hemoglobin 12.1g/dL (13.8-17.2) Hematocrit 36.2% (41.0-50.0) Mean Corpuscular Volume 87.7fL (81-100) Mean Corpuscular Hemoglobin 29.3pg (27.0-35.0) Mean Corpuscular Hemoglobin Concent 33.4% (32.0-37.0) Red Cell Distribution Width 14.4% (12.3-15.4) Platelet Count 242bil/L (150-400) Neutrophils (%) (Auto) 79.7% (40-74) Lymphocytes (%) (Auto) 7.9% (14-46) Monocytes (%) (Auto) 10.5% (4-12) Eosinophils (%) (Auto) 1.5% (0-5) Basophils (%) (Auto) 0.2% (0-3) Microbiology 08/23/16 Urine Culture - Preliminary, Resulted No growth to date Result Diagram: 08/24/16 0610 Catheters: None Assessment & Plan Impression Status post a #1 left reverse total shoulder arthroplasty. Patient doing very well, ready for discharge to home. Problems: Plan Patient will remain nonweightbearing to left upper extremity. Do not lift or use the left arm. Keep your arm in the sling at all times except to remove 3 times a day to gently move your elbow and hand as was demonstrated to him today. Keep dressing clean and dry for 3 days, then you may remove the dressing and apply a new one. We prefer you to keep this dry and clean until you are seen in our office at 2 weeks. You may shower after 3 days and try to keep the dressing dry, if this gets wet please remove and apply a clean dressing. We will discharge her with pain medicine to take every 4-6 hours if needed for pain. He will take aspirin 81 mg by mouth daily 14 days. Follow-up at [facility] at 2 weeks for your postoperative appointment. Please call us if there are any problems between now and then. Alvarado Mcfarlane PA-C Aug 24, 2016 11:00
--- NOTE | 2016-08-24 11:01 | PCM.DIORTH ---
Ortho Discharge Instruction Date of Service: Aug 24, 2016 Dates of Hospitalization Date of Hospital Admission Aug 23, 2016 at 11:34 Providers Admitting Physician: Jorge Gore MD Primary Care Physician: Jose Paige DO Attending Physician: Jorge Gore MD Diet Discharge Diet: No restrictions Activity Discharge Activity-General: No restrictions Left Upper Extremity: Non-weight bearing Additional Instructions Discharge Instructions Patient will remain nonweightbearing to left upper extremity. Do not lift or use the left arm. Keep your arm in the sling at all times except to remove 3 times a day to gently move your elbow and hand as was demonstrated to him today. Keep dressing clean and dry for 3 days, then you may remove the dressing and apply a new one. We prefer you to keep this dry and clean until you are seen in our office at 2 weeks. You may shower after 3 days and try to keep the dressing dry, if this gets wet please remove and apply a clean dressing. We will discharge her with pain medicine to take every 4-6 hours if needed for pain. He will take aspirin 81 mg by mouth daily 14 days. Follow-up at [facility] at 2 weeks for your postoperative appointment. Please call us if there are any problems between now and then. Alvarado Mcfarlane PA-C Aug 24, 2016 11:01
--- NOTE | 2016-08-24 11:04 | PCM.DC.ORT ---
Discharge Summary Date of Service: Aug 24, 2016 Date of Hospital Admission: Aug 23, 2016 at 11:34 Date of Surgery: Aug 23, 2016 Date of Discharge: Aug 24, 2016 Reason for Hospitalization: Left shoulder severe rotator cuff arthropathy Procedures Performed: Left reverse total shoulder arthroplasty Hospital Course: Patient presented to [facility] surgical suite for the procedure of left reverse total shoulder arthroplasty by Dr. Jorge Gore on 2016. Patient was prepped for surgery and the procedure was performed successfully, patient was discharged to PACU under stable condition, tolerated the procedure well. Once stabilized in PACU and pain well controlled, patient was admitted to the hospital floor for observation, pain control, and progression with physical therapy. The first day the patient was able to resume a regular diet, void on their own, not having any problems with nausea or vomiting. The patient did not have any adverse falls, reactions, or events were all in the hospital. The patient began working with physical therapy on day one then progressed quite well with reasonable pain control. On day 1 the patient was able to ambulate safely on their own, and pain was controlled sufficiently to be discharged to home. We will utilize aspirin 81 mg by mouth daily for 2 weeks for DVT prophylaxis. The patient was discharged to home under stable condition with plan to follow- up with patient at 2 weeks for a postoperative appointment. Diagnosis at Time of Discharge Status post left reverse total shoulder arthroplasty Problems: Discharge Instructions: Patient will remain nonweightbearing to left upper extremity. Do not lift or use the left arm. Keep your arm in the sling at all times except to remove 3 times a day to gently move your elbow and hand as was demonstrated to him today. Keep dressing clean and dry for 3 days, then you may remove the dressing and apply a new one. We prefer you to keep this dry and clean until you are seen in our office at 2 weeks. You may shower after 3 days and try to keep the dressing dry, if this gets wet please remove and apply a clean dressing. We will discharge her with pain medicine to take every 4-6 hours if needed for pain. He will take aspirin 81 mg by mouth daily 14 days. Follow-up at [facility] at 2 weeks for your postoperative appointment. Please call us if there are any problems between now and then. Albuterol HFA (Proair HFA) 8.5 Gm Hfa.aer.ad 2 PUFFS INHALATION Q4H PRN PRN PRN Amlodipine (Amlodipine) 5 Mg Tablet 5 MG PO DAILY Atorvastatin (Lipitor) 20 Mg Tablet 20 MG PO DAILY Fexofenadine (Adelia Allergy) 180 Mg Tablet 180 MG PO DAILY Fluticasone Propionate (Flonase Allergy Relief) 50 Mcg/Actuation [place].susp 9.9 ML NS DAILY Fluticasone/Salmeterol (Advair 250-50 Diskus) 60 Puff/Inh Disk 1 PUFF IH BID Gabapentin (Gabapentin) 300 Mg Capsule 300 MG PO BID Lisinopril (Lisinopril) 20 Mg Tablet 20 MG PO DAILY Meloxicam (Meloxicam) 15 Mg Tablet 15 MG PO DAILY Metformin (Glucophage) 1,000 Mg Tablet 1,000 MG PO BID Tamsulosin (Flomax) 0.4 Mg Capsule 0.4 MG PO DAILY Alvarado Mcfarlane PA-C Aug 24, 2016 11:03
--- NOTE | 2016-08-24 12:00 | NUR ---
Discharge Pt. discharged to home with and took all his belongings from room 240-2 MOC, including his CPAP machine. Pt. left arm in sling, able to feel sensation and wiggle his left fingers with no complaints, warm to touch and cap refill less than 3 seconds. Pt. was given educational material on rotator cuff tear and repair. Pt. was also instructed to take his prescribed pain medication PO every 4-6 hours as needed and aspirin once daily for 14 days. instructions for rotator cuff self care was read and discussed with Pt. and Pt. had no questions stating "I understand." Pt. also instructed to follow-up at [facility] on September 07 with an appointment time of 2:10PM. Pt. stated he would go to that appointment. IV DC'D x1 intact and asymptomatic. Pt. walked out of hospital with me and and had no complaints.
--- NOTE | 2016-08-24 12:22 | NUR ---
Social Work: Attempted Initial Assessment / D/C Data: Pt is a 71 y/o male admitted for left shoulder rotator cuff tear. Pt's PCP is Dr Paige, pt's insurance is [place] [employer] [employer] [place]. EMR reviewed. Readmit score not listed. D/C orders are in. [employer] COMMUNICATIONS ADMINISTRATOR attempted initial assessment this AM, but pt had already discharged. No d/c planning needs identified. CHUR[employer] COMMUNICATIONS ADMINISTRATOR will continue to follow if needs arise. Assessment: Pt who is independent at baseline. Plan: Pt discharged home via POV with family today. No d/c planning needs identified. [employer] COMMUNICATIONS ADMINISTRATOR will continue to follow if needs arise. JULIANO Rojas
--- NOTE | 2016-08-24 13:20 | NUR ---
Evaluation completed. Please go to "Notes" then click on "Assessments and Notes" (bottom left corner of screen). Then select appropriate discipline tab on top of screen.
== END 2016-08-24 12:05 | disposition home or self-care (01) | DRG 483 ==
LOC: SAS 05:45 → OSC 11:34 → SAS 11:34 → OSC 11:34 → MOC 22:50
PROVIDERS: ADMIT Orthopaedic Surgery; ATTEND Orthopaedic Surgery
PROC: 0RRK00Z Replacement of Left Shoulder Joint with Reverse Ball and Socket Synthetic Substitute, Open Approach (ICD-10-PCS; principal; 2016-08-23 07:30)
DX: M75.122 Complete rotator cuff tear or rupture of left shoulder, not specified as traumatic (principal); M19.012 Primary osteoarthritis, left shoulder; M77.8 Other enthesopathies, not elsewhere classified; E11.42 Type 2 diabetes mellitus with diabetic polyneuropathy; Z79.84 Long term (current) use of oral hypoglycemic drugs; I10 Essential (primary) hypertension; J45.909 Unspecified asthma, uncomplicated; E78.5 Hyperlipidemia, unspecified